=== PATIENT | male | born 1970 | race Caucasian/White ===

== ENCOUNTER 2023-06-12 13:00 | Emergency (ER) | payer OTHER, SELFPAY ==
--- NOTE | ~2023-06-12 | XR_ITS ---
XR elbow LT 2V DATE: 06/12/2023 13:21 INDICATION: Drill bit and left elbow TECHNIQUE: 2 views COMPARISON: None FINDINGS: There are 3 radiopaque foreign bodies, one measuring only approximately 1.2 mm, with 2 larg er radiopaque metallic foreign bodies, one measuring 1.5 x 11.5 mm, the other measuring 1.8 x 13.8 mm . One is situated anterior to the elbow joint, the other more posteriorly. CT is recommended to more definitively localized these foreign bodies. No fracture or dislocation or joint effusion, periosteal reaction or bone destruction. IMPRESSION: Several metallic radiopaque foreign bodies; consider CT to more definitively localized fo rm bodies Reviewed, dictated and finalized at location A. IMPRESSION: Several metallic radiopaque foreign bodies; consider CT to more def initively localized form bodies
[2023-06-12 13:10] VITALS: BP 120/76; PULSE 81; RESP 16; TEMP 36.3; O2SAT 99
--- NOTE | 2023-06-12 13:21 | ED.SKABFB ---
HPI - Skin/Abscess/Foreign Bdy General Chief complaint: Skin/Abscess/Foreign Body Stated complaint: Left Arm Pain Time Seen by Provider: 06/12/23 13:15 Source: patient Mode of arrival: ambulatory Limitations: no limitations History of Present Illness HPI narrative: Chintan is a 53-year-old male patient presenting to the clinic today with complaints of possible foreign body in his left elbow. He reports that he dropped a drill and the drill bit broke possibly off into his arm. He does have a scabbed over puncture wound to the left anterior elbow Related Data Allergies Allergy/AdvReac Type Severity Reaction Status Date / Time No Known Allergies Allergy Verified 06/12/23 13:21 Review of Systems Review of Systems: Pertinent positives per HPI. Patient denies any fever, chills, rash, headache, visual changes, dizziness, cough, runny nose, sore throat, shortness of breath, chest pain, palpitations, nausea, vomiting, diarrhea, constipation, abdominal pain, or any urinary issues. PMFSH Comments At the time of my signature, I reviewed and agree with the nursing past medical, surgical, social, and family history. There is no relevant family history pertinent to the patient complaint. Exam Narrative: General: Well-developed, well nourished, in no apparent distress Head: Normocephalic, atraumatic. Cardio: Regular rate and rhythm, s1 and s2 normal, no murmur appreciated. Resp: Clear to auscultation bilaterally, no rhonchi, rales, wheezing or rubs. Integumentary: [place], warm, and dry, intact without lesion, scabbed over puncture wound to the left antecubital area without redness or swelling. No foreign body palpable under the skin. Course Course Emergency Course: Portions of this record may have been created with voice recognition software. Level of Care: Express Care Visit Vital Signs Vital signs: Vital Signs Temperature 36.3 C L 06/12/23 13:10 Pulse Rate 81 06/12/23 13:10 Respiratory Rate 16 06/12/23 13:10 Blood Pressure 120/76 06/12/23 13:10 Pulse Oximetry 99 06/12/23 13:10 Oxygen Delivery Room Air 06/12/23 13:10 Temperature 36.3 C L 06/12/23 13:10 Pulse Rate 81 06/12/23 13:10 Respiratory Rate 16 06/12/23 13:10 Blood Pressure 120/76 06/12/23 13:10 Pulse Oximetry 99 06/12/23 13:10 Oxygen Delivery Room Air 06/12/23 13:10 Vital signs reviewed MDM - Skin/Abscess/Foreign Bdy MDM Narrative Medical decision making narrative: At the time of visit patient is resting comfortably on the exam table. X-ray shows a foreign body over the soft tissue of the left antecubital. Radiologist recommends CT to differentiate location of the foreign body. Offer to send patient to the ER for CT and he declined at this time and reports he will follow up with his doctor on Wednesday. He denies any pain with flexion and extension of the left elbow for currently. Recommend follow-up with general surgeon to discuss risk and benefits of removal of foreign body. No sign of infection in the clinic today. Tetanus updated in the clinic today. Supportive measures were discussed with the patient he voiced understanding discharge instructions and agrees to treatment plan. Differential Diagnosis Differential diagnosis: Likely abscess of skin or subcutaneous tissue, cellulitis and other (Soft tissue foreign body, puncture wound) Imaging Data Radiologist's impression: ITS Impressions Elbow X-Ray 06/12/23 13:36 IMPRESSION: Several metallic radiopaque foreign bodies; consider CT to more definitively localized form bodies Discharge Plan Discharge Clinical Impression: Acute foreign body of left elbow Qualifiers: Encounter type: initial encounter Qualified Code(s): S50.352A - Superficial foreign body of left elbow, initial encounter Patient Disposition: Home, Self-Care Condition: Stable Instructions: Antibiotic Form, Soft Tissue Foreign Body (ED) Additional Instructions: Offe
[2023-06-12] MEDS: TETANUS,DIPHTHERIA,AC PERTUSSIS ADULT (0.5 ML) BOOSTRIX IM (13:34)
== END 2023-06-12 13:57 | disposition home or self-care (01) ==
PROVIDERS: Emergency Provider Nurse Practitioner Family
DX: S50.352A Superficial foreign body of left elbow, initial encounter (principal); W29.8XXA Contact with other powered hand tools and household machinery, initial encounter; Z23 Encounter for immunization
CPT/HCPCS: 73070; 90471; 90715; 99213; G0463